=== PATIENT | female | born 1940 | race Caucasian/White ===

== ENCOUNTER 2017-03-06 07:06 | Emergency (ER) | payer MEDICARE, OTHER ==
[~2017-03-06] VITALS: Ht 160 cm; Wt 95.3 kg
[~2017-03-06 07:06] MED LIST: HYDR12.53 PO; LOSA25TA4 PO; SERT50TA8 PO; TRAM-48 PO
[2017-03-06] MEDS ORDERED: LABETALOL 20 MG/4 ML DISP.SYRIN. IVP ONE (07:30)
[2017-03-06] MEDS ORDERED: ONDANSETRON PF 4 MG/2 ML VIAL. IV ONE (07:30)
[2017-03-06] MEDS ORDERED: IV NORMAL SALINE 500ML BAG 500 ML IV ONE (07:30)
[2017-03-06 07:31] LABS: BASO % 1 % (0-3); EOS % 2 % (0-3); HEMATOCRIT 45.9 % (36.0-47.0); HEMOGLOBIN 15.1 g/dL (12.0-15.5); LYMPH # 1.3 x10^3/uL (1.0-4.8); LYMPH % 22 % (24-48); MEAN CORPUSCULAR HEMOGLOBIN 32 pg (25-35); MEAN CORPUSCULAR HGB CONC 33 g/dL (31-37); MEAN CORPUSCULAR VOLUME 96 fL (79-100); MONO % 8 % (0-9); NEUT % 67 % (31-73); PLATELET COUNT 256 x10^3/uL (140-400); RED BLOOD COUNT 4.78 x10^6/uL (3.50-5.40); RED CELL DISTRIBUTION WIDTH 14.1 % (11.5-14.5); WHITE BLOOD COUNT 5.7 x10^3/uL (4.0-11.0)
--- NOTE | 2017-03-06 07:37 | PHYS DOC ---
Past Medical History Past Medical History: Constipation, Depression, GERD, Hypertension, Other Additional Past Medical Histor: chronic pain Past Surgical History: Hysterectomy, Tonsillectomy, Other Additional Past Surgical Histo: rt rotator cuff,bladder sling,back surgery, knee surgery,cataract,carpal madhuri Alcohol Use: Occasionally Drug Use: None Adult General Chief Complaint Chief Complaint: NAUSEA/VOMITING/DIARRHA HPI HPI 68-year-old female presenting to the emergency department with nausea and headache over the past 3 or 4 days. She reports having sinus drainage and pain in the sinuses that is mild intermittent nonradiating and associated with nausea. She reports feeling generally fatigued and malaised. Review of systems is negative for chest pain abdominal pain, nausea, and vomiting, fevers, chills. She denies numbness weakness or tingling. She does report eating short of breath but she describes it as having clogged sinuses. She does not feel that is coming from lower in her lungs. All other review of systems is negative unless otherwise noted in history of present illness. ED course: 76-year-old female presenting with nausea sinus pressure and generalized weakness. Pertinent physical exam showed tenderness to palpation along the sinuses. Nontender temporal area bilaterally. Normal neurologic exam. Abdomen is soft and nontender and lungs are clear. Chest x-ray EKG blood work and urinalysis were obtained. Workup unremarkable. Repeat examination continues to be unremarkable. CT head negative. After IV fluids and Zofran the patient was feeling better and subsequent discharged home to follow up with PCP. The patient was then discharged home in stable condition to follow up with their primary care physician over the next 2-3 days. They were to return if their symptoms worsened or if they were concerned for any reason. [id number] discharge instructions and return precautions were given. Patient's questions were answered to their satisfaction. Patient is comfortable plan. Review of Systems Review of Systems SEE ABOVE. Current Medications Current Medications Current Medications Medications (Trade) Dose Ordered Sig/Bin Start Time Stop Time Status Last Admin Dose Admin Labetalol HCl (Normodyne) 20 mg 1X ONCE 03/06/17 07:30 03/06/17 07:33 DC 03/06/17 07:43 20 MG Ondansetron HCl (Zofran) 4 mg 1X ONCE 03/06/17 07:30 03/06/17 07:33 DC 03/06/17 07:43 4 MG Sodium Chloride 500 ml @ 500 mls/hr 1X ONCE 03/06/17 07:30 03/06/17 08:29 03/06/17 07:40 500 MLS/HR Allergies Allergies Allergies Coded Allergies Type Severity Reaction Last Updated Verified cefuroxime axetil Allergy Unknown nausea 11/28/13 Yes Metaxalone Allergy nausea 11/28/13 Yes codeine Allergy nausea 11/28/13 Yes Sulfa (Sulfonamide Antibiotics) Adverse Reaction nausea 11/28/13 Yes acetaminophen Adverse Reaction vomiting 11/28/13 Yes clarithromycin Adverse Reaction nausea 11/28/13 Yes codeine phosphate Adverse Reaction vomiting 11/28/13 Yes levofloxacin Adverse Reaction pain 11/28/13 Yes Physical Exam Physical Exam Constitutional: Well developed, well nourished, no acute distress, non-toxic appearance. [] HENT: Normocephalic, atraumatic, bilateral external ears normal, oropharynx moist, no oral exudates, nose normal. []see above Eyes: PERRLA, EOMI, conjunctiva normal, no discharge. [] Neck: Normal range of motion, no tenderness, supple, no stridor. [] Cardiovascular:Heart rate regular rhythm, no murmur [] Lungs & Thorax: Bilateral breath sounds clear to auscultation [] Abdomen: Bowel sounds normal, soft, no tenderness, no masses, no pulsatile masses. [] Skin: Warm, dry, no erythema, no rash. [] Back: No tenderness, no CVA tenderness. [] Extremities: No tenderness, no cyanosis, no clubbing, ROM intact, no edema. [] Neurologic: Alert and oriented X 3, normal motor function, normal sensory function, no focal deficits noted. [] Psychologic: Affect normal, judgement normal, mood normal. [] Current Patient Data Vital Signs Vital Signs Date Time Temp Pulse Resp B/P (MAP) Pulse Ox O2 Delivery O2 Flow Rate FiO2 03/06/17 07:43 77 186/85 03/06/17 07:06 97.6 15 98 Room Air 97.6 Lab Values Laboratory Tests Test 03/06/17 07:20 White Blood Count 5.7 x10^3/uL (4.0-11.0) Red Blood Count 4.78 x10^6/uL (3.50-5.40) Hemoglobin 15.1 g/dL (12.0-15.5) Hematocrit 45.9 % (36.0-47.0) Mean Corpuscular Volume 96 fL (79-100) Mean Corpuscular Hemoglobin 32 pg (25-35) Mean Corpuscular Hemoglobin Concent 33 g/dL (31-37) Red Cell Distribution Width 14.1 % (11.5-14.5) Platelet Count 256 x10^3/uL (140-400) Neutrophils (%) (Auto) 67 % (31-73) Lymphocytes (%) (Auto) 22 % (24-48) L Monocytes (%) (Auto) 8 % (0-9) Eosinophils (%) (Auto) 2 % (0-3) Basophils (%) (Auto) 1 % (0-3) Neutrophils # (Auto) 3.8 x10^3uL (1.8-7.7) Lymphocytes # (Auto) 1.3 x10^3/uL (1.0-4.8) Monocytes # (Auto) 0.4 x10^3/uL (0.0-1.1) Eosinophils # (Auto) 0.1 x10^3/uL (0.0-0.7) Basophils # (Auto) 0.0 x10^3/uL (0.0-0.2) Sodium Level 143 mmol/L (136-145) Potassium Level 3.6 mmol/L (3.5-5.1) Chloride Level 105 mmol/L (98-107) Carbon Dioxide Level 30 mmol/L (21-32) Anion Gap 8 (6-14) Blood Urea Nitrogen 12 mg/dL (7-20) Creatinine 0.8 mg/dL (0.6-1.0) Estimated GFR (Cockcroft-Gault) 69.4 Glucose Level 142 mg/dL (70-99) H Calcium Level 9.4 mg/dL (8.5-10.1) Total Bilirubin 0.4 mg/dL (0.2-1.0) Direct Bilirubin 0.1 mg/dL (0.0-0.2) Aspartate Amino Transferase (AST) 19 U/L (15-37) Alanine Aminotransferase (ALT) 22 U/L (14-59) Alkaline Phosphatase 78 U/L (46-116) Troponin I Quantitative < 0.017 ng/mL (0.000-0.055) Total Protein 7.3 g/dL (6.4-8.2) Albumin 3.7 g/dL (3.4-5.0) Lipase 117 U/L (73-393) Laboratory Tests 03/06/17 07:20 Laboratory Tests 03/06/17 07:20 EKG EKG [] Radiology/Procedures Radiology/Procedures [] Course & Med Decision Making Course & Med Decision Making Pertinent Labs and Imaging studies reviewed. (See chart for details) [] Dragon Disclaimer Dragon Disclaimer This electronic medical record was generated, in whole or in part, using a voice recognition dictation system. Departure Departure Impression: Primary Impression: Sinus pressure Additional Impressions: Headache Malaise and fatigue Nausea Disposition: HOME, SELF-CARE Condition: STABLE Referrals: JACKIE ESCOTO (PCP) Patient Instructions: Sinus Headache Additional Instructions: Thank you for allowing us to participate in your care today. Followup with your primary care physician in 3 days if your symptoms do not improve. Call your Primary Doctor tomorrow and inform them of your visit today. If you do not have a primary care provider you can ask for a list of our primary care providers. Return to the emergency department you have any new or concerning findings. This should be evaluated by the primary care physician and any necessary consulting services for continued management within a few days after discharge. Return to emergency room if you have any new or concerning symptoms including but not limited to fever, chills, nausea, vomiting, intractable pain, any new rashes, chest pain, shortness of air, uncontrolled bleeding, difficulty breathing, and/or vision loss. Problem Qualifiers CAMRYN MUÑOZ MD Mar 06, 2017 07:37
[2017-03-06 07:40] LABS: CALCIUM 9.4 mg/dL (8.5-10.1); CREATININE 0.8 mg/dL (0.6-1.0); GFR 69.4; POTASSIUM 3.6 mmol/L (3.5-5.1)
[2017-03-06 07:46] LABS: ALBUMIN 3.7 g/dL (3.4-5.0); DIRECT BILIRUBIN 0.1 mg/dL (0.0-0.2); TOTAL BILIRUBIN 0.4 mg/dL (0.2-1.0); TOTAL PROTEIN 7.3 g/dL (6.4-8.2)
--- NOTE | 2017-03-06 07:58 | RAD ---
AP PORTABLE CHEST Clinical Indication: short of air. Comparison: AP chest 11/28/2013. Findings: Cardiac size upper limits of normal but stable. Left apical calcified granuloma. Lungs are clear. There is no pneumothorax. No pleural effusion is appreciated. Degenerative arthropathy of the shoulders. Fusion hardware in the lower cervical spine. IMPRESSION: No acute cardiopulmonary process.
--- NOTE | 2017-03-06 08:10 | RAD ---
PQRS Compliance Statement: One or more of the following individualized dose reduction techniques were utilized for this examination: 1. Automated exposure control 2. Adjustment of the mA and/or kV according to patient size 3. Use of iterative reconstruction technique CT HEAD WITHOUT CONTRAST History: headache, nausea, and vomiting x3-4 days, weakness. Comparison: CTA head and neck 11/28/2013. Procedure: Axial images are obtained of the head from the skull base through the vertex without IV contrast. Findings: Maciel-white matter differentiation is preserved. The ventricles and sulci are normal for patient age. There is mild periventricular white matter hypoattenuation. This is a nonspecific finding but is commonly due to chronic small vessel ischemic disease in a patient of this age. No mass-effect, midline shift, hemorrhage or obvious acute infarction is identified. Basilar cisterns are patent. Bone windows demonstrate no significant calvarial abnormality.The visualized paranasal sinuses appear clear. Mastoid air cells are well aerated. 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 IMPRESSION: No acute intracranial abnormality.
--- NOTE | 2017-03-06 08:45 | EKG ---
[facility] [address] [place] [address] Test Date: 2017-03-06 Test Time: 07:14:08 Pat Name: ROYER GARCIA Department: Room: Gender: F [employer]room Worker: : [id number] Requested By: CAMRYN MUÑOZ Order Number: [id number] Reading MD: Measurements Intervals [place] Rate: 82 P: 6 WA: 164 QRS: -66 QRSD: 130 T: 68 QT: 400 QTc: 471 Interpretive Statements SINUS RHYTHM ABNORMAL LEFT AXIS DEVIATION LEFT ANTERIOR FASCICULAR BLOCK NON SPECIFIC INTRAVENTRICULAR BLOCK RVH WITH REPOLARIZATION ABNORMALITY QRS(T) CONTOUR ABNORMALITY CONSIDER ANTEROSEPTAL MYOCARDIAL DAMAGE RI6.01 Unconfirmed report No previous ECG available for comparison
[2017-03-06 08:56] LABS: BILIRUBIN,URINE NEGATIVE (NEG); GLUCOSE,URINE NEGATIVE (NEG); NITRITE,URINE NEGATIVE (NEG); PH,URINE 6.5; PROTEIN,URINE NEGATIVE (NEG-TRACE); UROBILINOGEN,URINE 0.2 mg/dL (0.2 mg/dL)
[2017-03-06 09:00] VITALS: BP 156/74
[2017-03-06] MEDS ORDERED: FLUTICASONE 50MCG/NASAL SPRAY 16GM BOTTLE. NS SCH (09:00)
[2017-03-06 09:07] LABS: BACTERIA,URINE 0 /HPF (0-FEW); RBC,URINE 0 /HPF (0-2); SQUAMOUS EPITHELIAL CELL,UR FEW /LPF; WBC,URINE 20-40 /HPF (0-4)
== END 2017-03-06 09:20 | disposition home or self-care (01) ==
LOC: ER 07:06
DX: J34.89 Other specified disorders of nose and nasal sinuses (principal); R51 Headache; R53.81 Other malaise; R53.83 Other fatigue; R11.0 Nausea; I10 Essential (primary) hypertension; K21.9 Gastro-esophageal reflux disease without esophagitis; G89.29 Other chronic pain; Z88.1 Allergy status to other antibiotic agents; Z88.2 Allergy status to sulfonamides; Z88.6 Allergy status to analgesic agent; Z88.8 Allergy status to other drugs, medicaments and biological substances
CPT/HCPCS: 36415; 70450; 71010; 80048; 80076; 81001; 83690; 84484; 85027; 87086; 93005; 96361; 96374; 96375; 99285; J2405; J3490; J7040

== ENCOUNTER → 2017-04-28 | Outpatient (CLI) | payer OTHER ==
--- NOTE | 2017-04-28 10:17 | KCIC ---
Indication: Neck pain. Time of exam 8:42 AM No prior studies are available for comparison. Curvature and alignment of the cervical spine is normal. There are postop changes of ACDF with anterior plate and screws extending from C4 through C6. The hardware appears intact. No fracture or loosening is seen. The prevertebral tissues are normal. C6-7 degenerative disc disease with mild disc space narrowing and marginal spurring is noted. IMPRESSION: C4-C6 ACDF. No complicating features are detected. Electronically signed by: Aurelio Anaya MD (04/28/2017 10:13 AM) [id number]
== END | disposition home or self-care (01) ==
LOC: KCIC 08:09
PROVIDERS: ATTEND Family Medicine
DX: M50.323 Other cervical disc degeneration at C6-C7 level (principal); M50.321 Other cervical disc degeneration at C4-C5 level; M50.322 Other cervical disc degeneration at C5-C6 level
CPT/HCPCS: 72050